=== PATIENT | male | born 1955 | race Hispanic/Latino ===

== ENCOUNTER → 2019-06-26 | Outpatient (CLI) | payer OTHER | END | disposition home or self-care (01) | LOC: SHCH 13:35 | PROVIDERS: ATTEND Internal Medicine Cardiovascular Disease | DX: I10 Essential (primary) hypertension (principal); R07.9 Chest pain, unspecified | CPT/HCPCS: 93306; 93356 ==

== ENCOUNTER → 2019-06-28 | Outpatient (CLI) | payer OTHER ==
[~2019-06-28] MED LIST: REGADENOSON 0.4 MG/5 ML PF SYG IVP SCH
== END | disposition home or self-care (01) ==
LOC: SHCH 08:44 → EDUNIT# 08:50
PROVIDERS: ATTEND Internal Medicine Cardiovascular Disease
DX: R07.9 Chest pain, unspecified (principal); I10 Essential (primary) hypertension
CPT/HCPCS: 78452; 93017; 96374; A9500 ×2; J2785

== ENCOUNTER → 2019-10-24 | Outpatient (CLI) | payer OTHER | END | disposition home or self-care (01) | LOC: SHCH 09:58 | PROVIDERS: ATTEND Internal Medicine Cardiovascular Disease | DX: I10 Essential (primary) hypertension (principal); I73.9 Peripheral vascular disease, unspecified | CPT/HCPCS: 93925; 93978 ==

== ENCOUNTER 2024-04-22 11:20 | Emergency (ER) | payer OTHER ==
[~2024-04-22] VITALS: Ht 177.8 cm; Wt 86.2 kg
--- NOTE | 2024-04-22 11:25 | ERN ---
General Chief Complaint: Wrist Pain/Injury Stated Complaint: WRIST INJURY Time Seen by MD: 11:22 Source: patient, family History of Present Illness Initial Comments 68-year-old gentleman coming in with left wrist pain. Per patient he fell down landed on his hand outstretched. He states the pain is localized to the left wrist region. Mild deformity noted. Allergies: Coded Allergies: No Allergy Information Available (Unverified Allergy, Unknown, 06/24/19) ROS Dictation CONSTITUTIONAL: No chills, no fever, no weakness, no diaphoresis, no malaise. HEAD/FACE: No signs of trauma. EENT: No eye pain, no blurred vision, no tearing, no double vision, no ear pain, no ear discharge, no nose pain, no nasal congestion, no throat pain, no throat swelling, no mouth pain. RESPIRATORY: No cough, no orthopnea, no SOB, no stridor, no wheezing. CARDIOVASCULAR: No chest pain, no edema, no palpitations, no syncope. GASTROINTESTINAL/ABDOMINAL: No abdominal pain, no constipation, no diarrhea, no nausea, no vomiting. GENITOURINARY: No abnormal discharge, no dysuria, no frequent urination, no hematuria. No complaints of pain in the genitals. MUSCULOSKELETAL: No back pain, no gout, joint pain, joint swelling, muscle pain, no muscle stiffness, no neck pain. INTEGUMENTARY: No change in color, no change in hair/nails, no dryness, no lesion, no lumps, no rash. NEUROLOGICAL/PSYCH: No anxiety, not depressed, no emotional problem, no headache, no numbness, no pre-existing deficit, no history of seizures, no tremors, no weakness. HEMATOLOGIC/LYMPHATIC: Not anemic, no history of blood clots, no apparent bleeding, no bruising, glands not swollen. All Systems Negative, Except as Noted. Physical Exam Physical Exam Dictation VITAL SIGNS: Reviewed. GENERAL APPEARANCE: Alert, oriented x3, no acute distress, obese. HEAD AND FACE: Non-traumatic. EYES: PERRL, pink conjunctivas, eyelid no trauma, anterior chamber clear. EARS: Pinnas intact and no signs of trauma or erythema. Ear canals clear and no discharge. TMs no erythema. NOSE: No discharge, no bleeding. OROPHARYNX: Mouth normal, teeth no caries, tongue pink. Pharynx clear, no erythema. Tonsils no exudates, no abscesses noted. Mucous membrane moist. NECK: Supple, non-tender, no thyromegaly, no masses, no JVD, no bruits. BREAST: Deferred. CHEST: No tenderness, no crepitus, no paradoxical movement, no retractions. LUNGS: Clear, well-ventilated, symmetric, no rales, no wheezing, no rhonchi, no stridor, good breath sounds bilaterally. HEART: Regular rate, regular rhythm, no murmur, no gallops. VASCULAR: No peripheral edema. ABDOMEN: Soft, positive bowel sounds, nondistended, no guarding, nontender, no rebound, no masses no hepatomegaly, no splenomegaly, no Cartagena's sign, no hernias. RECTAL: Deferred. GENITAL: Deferred. NEUROLOGICAL: Normal speech, gross motor function intact, gross sensory function intact. MUSCULOSKELETAL: Neck nontender, full range of motion, back nontender, full range of motion. EXTREMITIES: Nontender, full range of motion. Left wrist tenderness on palpation, mild deformity noted. Pain present on flexion and extension SKIN: Color pink, dry, no turgor, no rash, no lacerations, no abrasions, no contusions. LYMPHATICS: Deferred. MDM MDM: Differential diagnosis: Radial fracture, displaced radial fracture, Patient is a 68-year-old gentleman coming in to be evaluated for wrist pain. X- ray disclose the distal radial fracture. Minimally displaced posteriorly. Intra articular lidocaine injection was used local anesthesia achieved. Using traction counter traction distal radial fracture was mildly reduced improved alignment. X-ray confirms. Sugar-tong splint was placed and sling was applied as well. Neurovascular intact. Patient will be discharged in stable condition with diagnosis of distal radial fracture I advised him appropriate follow up with PCP and or nuclear operations specialist in 1-2 days. ED Course Orders Procedure Category Date Status Time Wrist Comp 3+Vws Lt RAD 04/22/24 Resulted 11:24 Lidocaine Hcl 1% 20ml PHA 04/22/24 In Process Vial (Lidocaine Hc 13:00 Wrist Comp 3+Vws Lt RAD 04/22/24 Taken 13:23 Current Medications Medications (Trade) Dose Ordered Sig/Debra Route PRN Reason Start Time Stop Time Status Last Admin Dose Admin Lidocaine HCl (Lidocaine HCl 1% 20ml Vial) 20 ml ONCE INJ 04/22/24 13:00 05/22/24 12:59 Vital Signs Date Time Temp Pulse Resp B/P (MAP) Pulse Ox O2 Delivery O2 Flow Rate FiO2 04/22/24 11:32 98.1 80 16 125/47 97 Room Air 0 Splinting Splinting : Hand-Made Type: orthoglass Splint: sugar-tong Pre-Proc Neuro Vasc Exam: normal Post-Proc Neuro Vasc Exam: normal Progress Patient is a 68-year-old male coming in to be evaluated for wrist pain. X-ray disclose wrist fracture of the left distal radius. Local lidocaine anesthesia was used intra-articular injection good anesthesia achieved, using traction counter traction mild reduction was accomplished sling was placed as well as splint, sugar-tong patient tolerated procedure well. On x-ray modest improvement of distal radial fracture with displacement was achieved. Improved alignment patient will be discharged in stable condition with a sugar-tong splint in place. DX & DISP Disposition: Discharge Departure Impression: Primary Impression: Distal radius fracture, right Condition: Stable Scripts Tramadol Hcl (Tramadol HCl) 50 Mg Tablet 50 MG PO DAILY for 5 Days, #5 TAB Prov: CANDIDA BERRY MD 04/22/24 Additional Instructions: FOLLOW-UP WITH PRIMARY CARE PROVIDER IN 1 TO 2 DAYS. TAKE MEDICATIONS DIRECTED HERE IN THE EMERGENCY ROOM. OKAY TO CONTINUE HOME MEDICATIONS UNLESS OTHERWISE DISCUSSED DURING YOUR VISIT IN THE EMERGENCY ROOM TODAY. RETURN TO YOUR NEAREST EMERGENCY ROOM IF SYMPTOMS WORSEN OR IF THERE IS NO IMPROVEMENT. CALL 911 IF YOU NEED IMMEDIATE ASSISTANCE. TAKE TYLENOL [id number] NEEDED AND IF NO CONTRAINDICATIONS ARE PRESENT. INCREASE ORAL HYDRATION. A WOUND CULTURE OR URINE CULTURE WAS ORDERED HERE IN THE EMERGENCY ROOM DEPARTMENT PLEASE FOLLOW-UP WITH PRIMARY CARE PROVIDER AND ADVISE THEM TO GET REPEAT PORTS FROM OUR FACILITY. IF YOU HAD ANY YUSEF WRAP/SPLINTS THAT WERE APPLIED HERE, PLEASE DO NOT REMOVE THEM UNTIL YOU SEE YOUR PRIMARY CARE OR SPECIALTY. Referrals: Referrals: ALIRIO PIEDRA MD (PCP) GEOVANY KING MD Time of Disposition: 13:51 CANDIDA BERRY MD Apr 22, 2024 11:25
--- NOTE | 2024-04-22 11:56 | HMCIMG ---
WRIST COMP 3+VWS LT REASON: WRIST PAIN / Fall TECHNIQUE: 3 views were obtained. FINDINGS: There is a fracture of the distal left radial metaphysis. There is posterior angulation along with 8 mm of posterior displacement. Carpal bones appear intact as do the metacarpals. Distal ulna appears unremarkable. IMPRESSION: 1. Mildly angulated and posteriorly displaced fracture distal left radial metaphysis.
[2024-04-22] MEDS ORDERED: TRAM50TA4 PO (13:52)
[2024-04-22 13:53] VITALS: BP 120/52; PULSE 80; RESP 16; TEMP 98.1; O2SAT 98
--- NOTE | 2024-04-22 13:58 | HMCIMG ---
WRIST COMP 3+VWS LT REASON: post reduction TECHNIQUE: 2 views were obtained. FINDINGS: There is persistent mild posterior angulation and displacement, both have been decreased compared to previous exam. The distal ulna remains intact as do the carpal bones. IMPRESSION: 1. Partial reduction of angulated and displaced distal radial fracture.
[2024-04-22] MEDS: LIDOCAINE HCL 1% 20 ML VIAL INJ SCH (14:16)
== END 2024-04-22 14:30 | disposition home or self-care (01) ==
LOC: EDH 11:20
DX: S52.592A Other fractures of lower end of left radius, initial encounter for closed fracture (principal); W18.39XA Other fall on same level, initial encounter; Y93.89 Activity, other specified; Y92.89 Other specified places as the place of occurrence of the external cause; Y99.8 Other external cause status
CPT/HCPCS: 25605; 73110; 99284